=== PATIENT | male | born 1995 | race Caucasian/White ===

== ENCOUNTER 2024-06-26 10:23 | Inpatient (IN) | payer MEDICAID ==
[~2024-06-26] VITALS: Ht 175.3 cm; Wt 75.3 kg
[2024-06-26 11:19] LABS: HEMOGLOBIN. 13.5 g/dL (14.0-18.0); MEAN CORPUSCULAR HEMOGLOBIN 35.5 pg (28.0-32.0); MEAN CORPUSCULAR HGB CONC 35.5 g/dL (31.0-37.0); MEAN CORPUSCULAR VOLUME 100.2 fL (80.0-94.0); MEAN PLATELET VOLUME 7.1 fl (7.4-10.4); PLATELET 79 x1000/uL (130-400); RED BLOOD CELL COUNT 3.79 mill/uL (4.7-6.1); RED CELL DISTRIBUTION WIDTH 12.7 % (11.6-14.6); WHITE BLOOD COUNT 5.8 x1000/uL (4.5-11.0)
[2024-06-26 11:27] LABS: CHLORIDE 100 mEq/L (98-107); POTASSIUM 3.6 mEq/L (3.5-5.1); SODIUM 135 mEq/L (136-145)
[2024-06-26 11:28] LABS: CARBON DIOXIDE 23 mEq/L (21-32)
[2024-06-26 11:29] LABS: CALCIUM 10.3 mg/dL (8.7-10.4)
[2024-06-26 11:33] LABS: CREATININE 0.7 mg/dL (0.6-1.3); GLUCOSE 92 mg/dL (70-105); UREA NITROGEN BLOOD 7 mg/dL (9-23)
[2024-06-26 11:34] LABS: TROPONIN I HIGH SENSITIVITY 4 ng/L (3.0-53)
[2024-06-26 11:36] LABS: DIFFERENTIAL COMMENT 1
[2024-06-26 11:47] LABS: ETHANOL BLOOD < 10 mg/dL (<10)
[2024-06-26] MEDS: FOLIC ACID 1 MG, THIAMINE HCL 100 MG, MVI, ADULT NO.1 10 ML in DEXTROSE 5% WATER 1,000 ML IV ONE (13:15)
[2024-06-26] MEDS ORDERED: DIAZEPAM 5 MG/ML 2ML SYR IV ONE (13:15)
[2024-06-26 14:28] LABS: ALANINE AMINOTRANSFERASE 125 IU/L (10-49); ALBUMIN 4.9 g/dL (3.2-4.8); ASPARTATE AMINOTRANSFERASE 170 IU/L (<34); BILIRUBIN DIRECT 0.6 mg/dL (<=3.0); BILIRUBIN TOTAL 1.8 mg/dL (0.1-1.0); PROTEIN TOTAL 8.4 g/dL (6.0-8.3)
[2024-06-26 14:42] LABS: PLATELET ESTIMATE DECREASED
[2024-06-26] MEDS: LORAZEPAM 2MG/ML INJ IV ONE (15:15)
[2024-06-26] MEDS: DIAZEPAM 5 MG/ML 2ML SYR IV NR (18:30)
[2024-06-26] MEDS ORDERED: ACETAMINOPHEN 325MG TABLET PO PRN ×2 (19:15)
[2024-06-26] MEDS ORDERED: ONDANSETRON HCL 4MG/2ML INJ IV PRN (19:15)
[2024-06-26] MEDS ORDERED: CLONIDINE 0.1MG TABLET PO PRN (19:15)
[2024-06-26] MEDS ORDERED: IPRATROPIUM/ALBUTEROL 0.5-3(2.5)MG/3ML NEB HHN PRN (19:15)
[2024-06-26] MEDS ORDERED: DOCUSATE SODIUM 100MG CAPSULE PO PRN (19:15)
[2024-06-26] MEDS: LORAZEPAM 2MG/ML INJ IV NR (19:57)
[2024-06-26] MEDS ORDERED: DIPHENHYDRAMINE 50MG/ML VIAL IM PRN (20:45)
[2024-06-26 20:52] LABS: AMMONIA 43 uMol/L (<32)
[2024-06-26 20:55] LABS: THYROID STIMULATING HORMONE 3.29 uIU/mL (0.55-4.78)
[2024-06-26 20:56] LABS: FOLIC ACID (FOLATE) SERUM 16.32 ng/mL (>5.38); VITAMIN B12 SERUM 742 pg/mL (211-911)
[2024-06-26] MEDS ORDERED: MIDAZOLAM 100MG/100ML PMX 100 ML IV PRN (21:00)
[2024-06-26] MEDS ORDERED: LORAZEPAM 2MG/ML INJ IV PRN (23:00)
[2024-06-27] VITALS (13 sets, daily range): BP systolic 129–155; BP diastolic 82–111; PULSE 95–142; RESP 20–33; TEMP 36.89184–36.9184; O2SAT 93–99
[2024-06-27] MEDS: LORAZEPAM 2MG/ML INJ IM NR (00:40)
[2024-06-27] MEDS: LEVETIRACETAM 500MG PREMIX 100 ML IV SCH (00:53)
[2024-06-27] MEDS: CHLORDIAZEPOXIDE 25MG CAPSULE PO SCH (00:58)
[2024-06-27 01:03] LABS: HIV 1/2 AB P24AG Negative (Negative)
[2024-06-27 01:09] LABS: HEPATITIS A AB IGM NEGATIVE (Negative)
[2024-06-27 01:10] LABS: HEPATITIS B CORE AB IGM NEGATIVE (Negative); HEPATITIS C AB NON REACTIVE (Neg) (Negative)
[2024-06-27] MEDS: FOLIC ACID 1 MG, THIAMINE HCL 100 MG, MVI, ADULT NO.1 10 ML in DEXTROSE 5% WATER 1,000 ML IV ONE (01:11)
[2024-06-27 01:16] LABS: HEPATITIS B SURFACE ANTIGEN REACTIVE PEND CONFIR (Negative)
[2024-06-27] MEDS: MIDAZOLAM 100MG/100ML PMX 100 ML IV PRN (04:49)
[2024-06-27 05:44] LABS: CHLORIDE 102 mEq/L (98-107); POTASSIUM 3.3 mEq/L (3.5-5.1); SODIUM 139 mEq/L (136-145)
[2024-06-27 05:45] LABS: CALCIUM 10.4 mg/dL (8.7-10.4); CARBON DIOXIDE 14 mEq/L (21-32)
[2024-06-27 05:50] LABS: CREATININE 0.9 mg/dL (0.6-1.3); GLUCOSE 62 mg/dL (70-105); UREA NITROGEN BLOOD 15 mg/dL (9-23)
[2024-06-27 05:52] LABS: ALANINE AMINOTRANSFERASE 127 IU/L (10-49); ASPARTATE AMINOTRANSFERASE 194 IU/L (<34); PROTEIN TOTAL 8.4 g/dL (6.0-8.3)
[2024-06-27 06:37] LABS: HEMATOCRIT. 39.8 % (42.0-52.0); HEMOGLOBIN. 13.9 g/dL (14.0-18.0); MEAN CORPUSCULAR HEMOGLOBIN 35.7 pg (28.0-32.0); MEAN CORPUSCULAR HGB CONC 34.9 g/dL (31.0-37.0); MEAN CORPUSCULAR VOLUME 102.4 fL (80.0-94.0); MEAN PLATELET VOLUME 7.4 fl (7.4-10.4); PLATELET 98 x1000/uL (130-400); RED BLOOD CELL COUNT 3.88 mill/uL (4.7-6.1); RED CELL DISTRIBUTION WIDTH 12.8 % (11.6-14.6); WHITE BLOOD COUNT 7.6 x1000/uL (4.5-11.0)
[2024-06-27 07:17] LABS: DIFFERENTIAL COMMENT 1
[2024-06-27] MEDS: FOLIC ACID 1MG TABLET PO SCH (09:00)
[2024-06-27] MEDS: MULTIVITAMINS,THER W-MINERALS TABLET PO SCH (09:00)
[2024-06-27] MEDS: THIAMINE HCL 100MG TABLET PO SCH (09:00)
[2024-06-27 11:48] LABS: PLATELET ESTIMATE DECREASED
[2024-06-27] MEDS: HALOPERIDOL LACTATE 5MG/ML VIAL IM SCH (12:15)
[2024-06-27] MEDS: LORAZEPAM 2MG/ML INJ IM SCH (12:16)
[2024-06-27] MEDS: DIPHENHYDRAMINE 50MG/ML VIAL IM SCH (12:16)
[2024-06-27 13:13] LABS: PHOSPHORUS 5.9 mg/dL (2.5-4.9)
[2024-06-27] MEDS: KCL 20MEQ/100ML PREMIX 100 ML IV NR (15:14)
[2024-06-27] MEDS: SODIUM CHLORIDE 0.9% 1,000 ML IV SCH (15:15)
[2024-06-28] VITALS (16 sets, daily range): BP systolic 119–147; BP diastolic 89–127; PULSE 97–135; RESP 14–29; TEMP 36.6696–36.9474; O2SAT 94–99
[2024-06-28 05:10] LABS: HBSAG SCREEN Negative (Negative)
[2024-06-28 06:39] LABS: HEMATOCRIT. 38.3 % (42.0-52.0); HEMOGLOBIN. 13.6 g/dL (14.0-18.0); MEAN CORPUSCULAR HEMOGLOBIN 35.8 pg (28.0-32.0); MEAN CORPUSCULAR HGB CONC 35.4 g/dL (31.0-37.0); MEAN PLATELET VOLUME 7.4 fl (7.4-10.4); PLATELET 126 x1000/uL (130-400); RED CELL DISTRIBUTION WIDTH 12.7 % (11.6-14.6)
[2024-06-28 06:46] LABS: CARBON DIOXIDE 25 mEq/L (21-32); CHLORIDE 99 mEq/L (98-107); POTASSIUM 2.9 mEq/L (3.5-5.1); SODIUM 134 mEq/L (136-145)
[2024-06-28 06:51] LABS: CREATININE 0.9 mg/dL (0.6-1.3)
[2024-06-28 06:52] LABS: GLUCOSE 109 mg/dL (70-105); UREA NITROGEN BLOOD 13 mg/dL (9-23)
[2024-06-28 07:11] LABS: DIFFERENTIAL COMMENT 1
[2024-06-28] MEDS: POTASSIUM CHLORIDE 20MEQ TABLET SR PO NR (08:49)
[2024-06-28 10:51] LABS: CREATINE KINASE 2880 IU/L (46-171)
[2024-06-28 20:44] LABS: PLATELET ESTIMATE DECREASED
== END 2024-06-28 09:16 | disposition left against medical advice (07) | DRG 52 ==
LOC: EDBD 10:23 → ER 10:23 → EDBEDREQTM 13:48 → EDBEDREQ 13:48 → EDBEDREQSVC 06-27 04:28 → CVICU 06-27 18:21
PROVIDERS: ADMIT Family Medicine Adult Medicine; ATTEND Family Medicine Adult Medicine
DX: G92.8 Other toxic encephalopathy (principal); M62.82 Rhabdomyolysis; S09.8XXA Other specified injuries of head, initial encounter; K74.60 Unspecified cirrhosis of liver; R74.01 Elevation of levels of liver transaminase levels; T50.995A Adverse effect of other drugs, medicaments and biological substances, initial encounter; E78.5 Hyperlipidemia, unspecified; F10.239 Alcohol dependence with withdrawal, unspecified; Z53.29 Procedure and treatment not carried out because of patient's decision for other reasons; E80.6 Other disorders of bilirubin metabolism; W18.30XA Fall on same level, unspecified, initial encounter; Y92.89 Other specified places as the place of occurrence of the external cause; Y93.89 Activity, other specified; Y99.8 Other external cause status
CPT/HCPCS: 36415; 70486; 71045; 76700; 80048; 80053; 80061; 80076; 80320; 82140; 82550; 82607; 82746; 82962; 83735; 83880; 84100; 84443; 84484; 85025; 86705; 86709; 87340; 93005; 99285; J1200; J1630; J1953; J2060; J2250; J3411; J3490; J7070; G0480